=== PATIENT | female | born 1950 | race Caucasian/White ===

== ENCOUNTER → 2021-11-22 12:44 | Outpatient (CLI) | payer OTHER, SELFPAY ==
--- NOTE | 2021-11-22 12:46 | DI.US.S_ITS ---
PROCEDURE: US THYROID INDICATIONS: thyroid nodule TECHNIQUE: Real-time scanning was performed of the thyroid gland, with image documentation. COMPARISON: [facility], [place], PET NECK TO MID THIGH, 04/29/2021, 13:32. [facility], [place], US THYROID, 01/04/2008, 11:11. FINDINGS: Right: Thyroid lobe measures 5.9 x 1.9 x 1.7 cm, and is homogeneous in echotexture. Left: Thyroid lobe measures 6 x 3.1 x 2.5 cm, and is homogenous in echotexture. Isthmus: 0.5 cm thick. Nodule number: 1 Location: Right superior Size: 1.2 x 0.6 x 0.6 cm Composition: Solid Echogenicity: Hypoechoic Shape: wider than tall. Margins: Smooth Echogenic foci: None Total points: 4 ACR TI-RADS category: TR 4, moderately suspicious. Nodule number: 2 Location: Left superior Size: 3.2 x 2.4 x 1.4 cm. (previously 3.4 x 2.2 x 1.3 cm) Composition: Spongiform Echogenicity: Isoechoic Shape: wider than tall. Margins: Smooth Echogenic foci: Punctate Total points: 4 ACR TI-RADS category: TR 4, moderately suspicious Nodule number: 3 Location: Left mid posterior Size: 2.6 x 2 x 1.5 cm. (Previously 2.4 x 1.6 x 1 cm) Composition: Predominantly solid Echogenicity: Isoechoic Shape: wider than tall. Margins: Smooth Echogenic foci: Punctate Total points: 6 ACR TI-RADS category: TR 4, moderately suspicious Nodule number: 4 Location: Left inferior Size: 2.5 x 2.2 x 2.1 cm. (Previously 1 x 1 x 0.9 cm) Composition: Predominantly solid Echogenicity: Hypoechoic Shape: wider than tall. Margins: Smooth Echogenic foci: None Total points: 4 ACR TI-RADS category: TR 4, moderately suspicious IMPRESSION: 1. Left mid thyroid nodule measuring 2.6 cm is mildly increased in size. TR 4, moderately suspicious. FNA is recommended. 2. Left inferior nodule measuring 2.5 cm is increased in size. TR 4, moderately suspicious. FNA is recommended. Note: FNA is recommended for the 2 most suspicious thyroid nodules. Recommend follow-up ultrasound in 1 year for the other nodules at this time. ACR TI-RADS definitions and recommendations: TI-RADS 1 (benign): 0 points. FNA not needed. TI-RADS 2 (not suspicious): 2 points. FNA not needed. TI-RADS 3 (mildly suspicious): 3 points. * FNA if 2.5 cm or larger, follow up if 1.5 cm or larger (at 1, 3, and 5 years). TI-RADS 4 (moderately suspicious): 4-6 points. * FNA if 1.5 cm or larger, follow up if 1 cm or larger (at 1, 2, 3, and 5 years). TI-RADS 5 (highly suspicious): 7 points or more. * FNA if 1 cm or larger, follow up if 0.5 cm or larger (every year for 5 years). Dictated by: Aaron Riggs M.D. on 11/23/2021 at 12:52 Approved by: Aaron Riggs M.D. on 11/23/2021 at 13:05
--- NOTE | 2021-11-22 12:57 | DI.CT.S_ITS ---
PROCEDURE: CT CHEST WO CON INDICATIONS: stage I adenocarcinoma TECHNIQUE: Noncontrast 5 mm thick sections acquired from the pulmonary apices to the posterior costophrenic angles. 1 mm lung window, 5 mm thick coronal and sagittal and 7 mm axial MIP reformats were then acquired. For radiation dose reduction, the following was used: automated exposure control, adjustment of mA and/or kV according to patient size. COMPARISON: [facility], , US THYROID, 11/22/2021, 12:51. [facility], [place], PET NECK TO MID THIGH, 04/29/2021, 13:32. Outside Film, CT, CT LOW DOSE LUNG CA SCREENING, 03/31/2021, 13:58. [facility], [place], XR CHEST 2 VIEWS, 05/17/2021, 10:13. FINDINGS: Image quality: Excellent. Lungs and pleura: There are postsurgical changes in the right lower lobe. A airspace opacity posterior medial to the right major fissure is seen, measuring 1.7 x 2.7 x 3.3 cm. There is ground-glass infiltrate in the remnant right lower lobe. No pleural effusions or pneumothorax. Central and peripheral airways are patent and normal in caliber. Mediastinum: Heart size is normal. No pericardial effusion. No mediastinal adenopathy by size criteria. Thoracic aorta and central pulmonary arteries are normal in size. Esophagus is normal in caliber. No hiatal hernia. Bones and chest wall: No suspicious bony lesions. No vertebral body compression fractures. No axillary or supraclavicular adenopathy by size criteria. The left thyroid lobe is enlarged and contains a 2.1 x 3.0 cm low-density mass. Abdomen: Visualized upper abdominal solid organs and bowel loops appear normal in the absence of contrast. IMPRESSION: 1. Postsurgical changes in the left lower lobe. There is a 1.7 x 2.7 x 3.3 cm airspace opacity posterior medial to the right major fissure and ground-glass opacity in the remanent right lower lobe, most likely secondary to postsurgical or post radiation. Recommend close imaging follow-up. 2. Right thyroid mass. Please correlate with findings thyroid ultrasound. Dictated by: Luis Moctezuma M.D. on 11/22/2021 at 16:08 Approved by: Luis Moctezuma M.D. on 11/22/2021 at 16:19
== END ==
PROVIDERS: PCP Family Medicine; Referring Provider Internal Medicine Hematology & Oncology; Visit Provider Internal Medicine Hematology & Oncology
DX: C34.91 Malignant neoplasm of unspecified part of right bronchus or lung (principal); E04.2 Nontoxic multinodular goiter
CPT/HCPCS: 71250; 76536

== ENCOUNTER → 2022-01-02 12:05 | Outpatient (CLI) | payer OTHER, SELFPAY ==
--- NOTE | 2022-01-02 | PATH_ITS ---
Note [facility] Accession Number: [id number] TESTS RESULT FLAG UNITS REF RANGE LAB Clinician Provided Cytology Information No. of containers..00 Previously Prepared Cytology Slide 35 Unknown Storage/container code(s) Source: LEFT THYROID NODULE# DIAGNOSIS: LEFT THYROID NODULE #4 NEGATIVE FOR MALIGNANT CELLS. ADEQUATE FOR EVALUATION. ASPIRATE COMPOSED OF GROUPS OF FOLLICULAR CELLS AND COLLOID. FINDINGS FAVOR BENIGN THYROID (GOITROUS NODULE), BETHESDA CATEGORY II. SEE COMMENT. COMMENT: The specimen shows adequate cellularity with follicular epithelial cells arranged in macro and micro-follicles in a background of colloid. The follicular epithelial cells have a round to ovoid nucleus with slight enlargement and overlapping. Abundant colloid present. Focal hurthle cell changes are present. Diagnostic features of papillary thyroid carcinoma not identified. Findings favor benign thyroid (goiterous) nodule(Raymond category II). The cytologic interpretation incorporates the Raymond system for reporting thyroid cytopathology. Close clinical follow-up and repeat FNA should be considered if there is significant growth or to address new sonographic abnormalities. This case has also been reviewed by Dr. Laura Rivera, cytopathologist, who concurs with the diagnosis. Pathologist ICD10: 01 R89.6 Signed out by: Devora Jacobo MD, Pathologist NPI- [id number] Performed by: Adam Fofana, Shrink Pit Supervisor ([facility]) Gross description: 01 30 CC, PINK, CLEAR RECIEVED: IN CYTOLYT WITH 5 ALCOHOL FIXED AND 5 QUICK STAINED SLIDES ALSO 1 RNA VIAL WAS RECEIVED FOR FURTHER TESTING. /VDU 01/03/2022 0736 Local FLAG LEGEND: L-Low Normal,H-High Normal,LL-Alert Low,HH-Alert High <-Panic Low,>-Panic High,A-Abnormal,AA-Critical Abnormal Performed at: 01 =Z [facility] [address] [place] [address], [place] [address] Guilherme Nath MD, Performed at: 01 [facility] [address] [place] [address] [address], [place], [place] [id number] MD Guilherme Nath MD Phone: [phone]
--- NOTE | 2022-01-02 | PATH_ITS ---
Note [facility] Accession Number: [id number] TESTS RESULT FLAG UNITS REF RANGE LAB Clinician Provided Cytology Information No. of containers..00 Previously Prepared Cytology Slide 35 Unknown Storage/container code(s) Source: LEFT THYROID NODULE# DIAGNOSIS: LEFT THYROID NODULE #3 NEGATIVE FOR MALIGNANT CELLS. ASPIRATE COMPOSED OF GROUPS OF FOLLICULAR CELLS AND COLLOID. FINDINGS FAVOR BENIGN THYROID (GOITROUS NODULE), BETHESDA CATEGORY II. SEE COMMENT. COMMENT: The specimen shows adequate cellularity with benign follicular epithelial cells arranged in macro and micro-follicles in a background of colloid. The follicular epithelial cells have a round to ovoid nucleus with minimal cytological atypia and minimal overlapping. Features of papillary thyroid carcinoma not identified. Findings favor benign thyroid (goiterous) nodule (Edmore category II). The cytologic interpretation incorporates the Edmore system for reporting thyroid cytopathology. Close clinical follow-up and repeat FNA should be considered if there is significant growth or to address new sonographic abnormalities. Pathologist ICD10: 01 E04.1 Signed out by: Devora Jacobo MD, Pathologist NPI- [id number] Performed by: Jermaine Leonard, [employer]atory [employer] Hand ([facility]) Gross description: 01 30 CC, PINK, CLEAR RECIEVED: IN CYTOLYT WITH 5 ALCOHOL FIXED AND 5 QUICK STAINED SLIDES ALSO 1 RNA VIAL WAS RECEIVED FOR FURTHER TESTING. /JAZMIN 01/03/2022 0735 [facility] FLAG LEGEND: L-Low Normal,H-High Normal,LL-Alert Low,HH-Alert High <-Panic Low,>-Panic High,A-Abnormal,AA-Critical Abnormal Performed at: 01 =Z [facility] [address], [place] [address] Guilherme Nath MD, Performed at: 01 [facility] [address], [place], [place] [id number] MD Guilherme Nath MD Phone: [phone]
--- NOTE | 2022-01-02 12:06 | DI.US.S_ITS ---
PROCEDURE: US FINE NEEDLE ASPIRATION INDICATIONS: LEFT THYROID NODULES X 2 TECHNIQUE: The indications, alternatives, benefits, risks, and complications of the procedure were explained to the patient. Written informed consent was obtained and placed in the chart. The thyroid region was examined sonographically and a site was chosen for ultrasound guided percutaneous sampling. The skin was prepared and draped in the usual fashion, and anesthetized with 1% lidocaine infiltrated from the skin down to the thyroid gland. Multiple passes were then performed, with contents emptied into an appropriate pathology specimen container. A bandage was applied to the area of access at completion of the study. COMPARISON: [facility], [place], US THYROID, 11/22/2021, 12:51. FINDINGS: Location(s) of lesion(s) sampled: Left mid posterior thyroid (nodule #3 on the ultrasound from 11/22/2021) and left inferior thyroid (nodule #4 on the prior ultrasound). Falls Of Rough: 25 gauge hypodermic needles. Number of passes: 5 passes for each nodule Medications: 1% lidocaine for local anaesthesia. Complications: None. IMPRESSION: Successful ultrasound-guided thyroid nodule fine needle aspiration, with cytology results pending. Please see chart below for management recommendations based on cytology results. [place] [facility] ReportingRecommendationsNon-diagnostic* Repeat US-guided FNA, with on-site cytology evaluation if possible. * Repeated non-diagnostic nodules without high suspicion US features: close observation vs surgical consult. * Consider surgery if nodule has high suspicion US features, grows >20% in 2 dimensions on followup, or patient has clinical risk factors for malignancy. Benign* If nodule has high suspicion US features: repeat US and FNA within 12 months. * If nodule has low to intermediate suspicion US features: repeat US at 12-24 months. If nodule grows (20% increase in at least 2 dimensions, with minimal increase of 2 mm or >50% change in volume), or development of new suspicious US features, then repeat FNA or continue followup. * If nodule has very low suspicion US features: followup US at >24 months. Atypia of undetermined significance, follicular lesion of undetermined significanceRepeat FNA, molecular testing, followup US, or surgical consult.Follicular neoplasm, suspicious for follicular neoplasmSurgical consult; also consider molecular testing. Suspicious for malignancySurgical consult.MalignantSurgical consult. Dictated by: Ap Zhu M.D. on 01/02/2022 at 15:39 Approved by: Ap Zhu M.D. on 01/02/2022 at 15:40
--- NOTE | 2022-01-02 12:06 | DI.US.S_ITS ---
PROCEDURE: US ABDOMEN COMPLETE INDICATIONS: HEPATOMEGALY; TRANSAMINITIS TECHNIQUE: Real-time scanning was performed of the abdominal and retroperitoneal organs, with image documentation. COMPARISON: None. FINDINGS: Liver: Liver is prominent in size and homogeneous in echotexture. Gallbladder: No findings of gallstones or sludge are seen. The gallbladder wall is not thickened, measuring 3 mm or less. A 4 mm gallbladder wall polyp can be seen at the gallbladder fundus. No specific pericholecystic fluid is seen. The sonographic Higuera sign is negative. Biliary ducts: Intrahepatic bile ducts are non-dilated. Extrahepatic bile duct caliber measures 6 mm. Normal is 6-7 mm or less in diameter, or 10 mm or less post-cholecystectomy. Pancreas: Visualized portions of the pancreas are sonographically normal. Spleen: Spleen is normal in size and homogeneous in echotexture. Kidneys: Kidneys are normal in size and echotexture. Right kidney measures 9.2 cm long; left kidney measures 10 cm long. No hydronephrosis or nephrolithiasis. No solid masses. Aorta: Visualized aorta is normal in caliber at less than 3 cm. Iliacs: Proximal common iliac arteries are normal in caliber at less than 2.5 cm. IVC: Intrahepatic inferior vena cava is patent. Miscellaneous: No free abdominal fluid. IMPRESSION: Enlarged liver, without a focal liver abnormality seen. The liver demonstrates normal overall echotexture. 4 mm gallbladder wall polyp incidentally noted. Dictated by: Esteban Esteves M.D. on 01/02/2022 at 14:05 Approved by: Esteban Esteves M.D. on 01/02/2022 at 14:06
== END ==
PROVIDERS: PCP Family Medicine; Referring Provider Internal Medicine Hematology & Oncology; Visit Provider Internal Medicine Hematology & Oncology
DX: E04.2 Nontoxic multinodular goiter (principal); R16.0 Hepatomegaly, not elsewhere classified; K82.4 Cholesterolosis of gallbladder
CPT/HCPCS: 10005; 76700

== ENCOUNTER → 2022-02-15 11:56 | Outpatient (CLI) | payer OTHER, SELFPAY ==
[2022-02-15 15:01] LABS: COVID19 -Nasal RAPID Negative (Negative)
== END ==
PROVIDERS: PCP Physician Assistant; Visit Provider Surgery
DX: Z01.812 Encounter for preprocedural laboratory examination (principal); Z20.822 Contact with and (suspected) exposure to COVID-19
CPT/HCPCS: 87635; C9803

== ENCOUNTER 2022-02-16 08:04 | Day surgery (SDC) | payer OTHER, SELFPAY ==
--- NOTE | 2022-02-16 08:29 | PM.HP.1 ---
History of Present Illness History of Present Illness Date Patient Seen: 02/16/22 Time Patient Seen: 08:29 Chief complaint: SDC Narrative: Ada is a 71-year-old woman who is in for screening colonoscopy. She believes she had 1 about 7 or 8 years ago with findings of diverticulosis. She has had a recent diagnosis of lung cancer and is status post right lower lobe resection. Patient History Medical History (Updated 02/16/22 @ 08:31 by Riley Chavez MD) Arthritis Bipolar disorder HLD (hyperlipidemia) OCD (obsessive compulsive disorder) Thyroid nodule Surgical History (Updated 10/31/21 @ 23:37 by Alberto Hawk MD) H/O hemorrhoidectomy H/O: hysterectomy History of lung surgery Family & Social History Family History (Updated 10/31/21 @ 23:01 by Alberto Hawk MD) Sister Brain cancer Tobacco & Substance use: Smoking Status Former smoker alcohol intake never Meds Home Medications and Allergies Home Medications Medication Instructions Recorded Confirmed Type Lactobacillus acidophilus 10 10,000 mmu cells PO DAILY 10/31/21 01/16/22 History billion cell capsule (Probiotic) biotin 2,500 mcg tablet 2,500 mcg PO DAILY 10/31/21 01/16/22 History cholecalciferol (vitamin D3) 50 100 mcg PO DAILY 10/31/21 01/16/22 History mcg (2,000 unit) capsule (Vitamin D3) iodine (kelp) 0.15 mg tablet (Kelp) 150 mcg PO DAILY 10/31/21 01/16/22 History lysine 1,000 mg tablet 1,000 mg PO DAILY 10/31/21 01/16/22 History magnesium 250 mg tablet 500 mg PO DAILY 10/31/21 01/16/22 History omega 1-ukr-qna-fish oil 1,200 mg 2,400 cap PO DAILY 10/31/21 01/16/22 History (144 mg-216 mg) capsule (Fish Oil) vitamin B complex 1 cap PO DAILY 10/31/21 12/01/21 History diphenhydramine HCl 25 mg capsule 25 mg PO BEDTIME 01/16/22 01/16/22 History (Benadryl) valerian 400 mg capsule 400 mg PO BEDTIME PRN 01/16/22 01/16/22 History escitalopram oxalate 10 mg tablet 10 mg DAILY 02/16/22 02/16/22 History Allergies Allergy/AdvReac Type Severity Reaction Status Date / Time clindamycin Allergy Unknown Rash Verified 02/16/22 08:23 erythromycin base Allergy Unknown vomit Verified 02/16/22 08:24 Penicillins Allergy Unknown Rash Verified 02/16/22 08:24 Exam Const General: healthy appearing HENMT Head: normal to inspection Resp Effort & Inspection: normal respiratory effort GI Palpation: soft Assessment & Plan Assessment and plan (1) Colon cancer screening: Status: Acute Plan We reviewed the risks and benefits of colonoscopy for colon cancer screening. She would like to proceed. COVID-19 COVID-19 status: Negative Result date/Date tested (Pos, Neg/Pending): 02/15/22 Time Spent With Patient Critical Care time: I spent a total of [] minutes of critical care time on this patient's care today; this time is exclusive of procedural time.
[2022-02-16 08:31] VITALS: BP 158/71; PULSE 51; RESP 14; TEMP 36.4; O2SAT 98
[2022-02-16 08:32] VITALS: BMI 23.6
[2022-02-16] MEDS: LACTATED RINGERS 1,000 ML 42 ML IV (08:48)
[2022-02-16] MEDS: fentaNYL 250 MCG/5 ML INJ 175 MCG IV (09:22)
[2022-02-16] MEDS: MIDAZOLAM 5 MG/5 ML VIAL 6 MG IV (09:22)
--- NOTE | 2022-02-16 09:36 | PM.OP.COLON ---
Operative Date/Time/Diagnoses Date of procedure: 02/16/22 Time of procedure: 09:36 Pre-op diagnosis: Colon cancer screening Post-op diagnosis: same Procedure & Clinicians Study performed: Colonoscopy Same procedure as scheduled: Yes Surgeon: Riley Chavez Procedure Notes Procedure in detail: Procedure: The patient was brought to the endoscopy suite, placed in left lateral decubitus position. The patient was connected to monitoring devices. A time-out was performed. Sedation was administered. Once the patient was adequately sedated, a digital rectal exam was performed and was normal. The scope was then inserted and advanced to the cecum where the appendiceal orifice was identified and photographed. The scope was then slowly withdrawn over greater than 6 minutes. Mucosa was thoroughly inspected. No polyps were noted. Significant diverticulosis in the sigmoid colon and left colon. The scope was retroflexed in the rectum. No abnormalities were noted other than some internal hemorrhoids. Scope was straightened and removed. The patient was awakened and brought to recovery. Versed: 6 mg Fentanyl: 175 mcg EBL: 0 Findings: Sigmoid diverticulosis Scope withdrawal time: 9 Sedation minutes: 29 Findings: divertiulosis Post-procedure Recommendations: Colonoscopy in 10 years Disposition: PACU
[2022-02-16 09:39] VITALS: BP 114/58; PULSE 54; RESP 12; TEMP 36.2; O2SAT 94
[2022-02-16 09:44] VITALS: BP 111/56; PULSE 57; RESP 16; O2SAT 94
[2022-02-16 09:49] VITALS: BP 114/59; PULSE 51; RESP 13; O2SAT 95
[2022-02-16 09:54] VITALS: BP 121/56; PULSE 58; RESP 17; O2SAT 94
[2022-02-16 09:57] VITALS: BP 121/57; PULSE 53; RESP 14; TEMP 36.4; O2SAT 98
== END 2022-02-16 10:09 | disposition home or self-care (01) ==
PROVIDERS: PCP Physician Assistant; Referring Provider Surgery; Visit Provider Surgery
PROC: 0DJD8ZZ Inspection of Lower Intestinal Tract, Via Natural or Artificial Opening Endoscopic (ICD-10-PCS; CPT 45378; principal; 2022-02-16 09:15)
DX: Z12.11 Encounter for screening for malignant neoplasm of colon (principal); K57.30 Diverticulosis of large intestine without perforation or abscess without bleeding
CPT/HCPCS: G0121; 99152; 99153; J2250; J3010

== ENCOUNTER → 2022-02-27 11:58 | Outpatient (CLI) | payer OTHER, SELFPAY ==
--- NOTE | 2022-02-27 12:23 | DI.CT.S_ITS ---
PROCEDURE: CT CHEST WO CON INDICATIONS: lung cancer TECHNIQUE: Noncontrast 2.0-2.5 mm thick sections acquired from the pulmonary apices to the posterior costophrenic angles. 7 mm thick axial MIP and 5 mm coronal and sagittal reformats were then acquired. A low radiation dose technique was utilized. COMPARISON: Outside Film, CT, CT LOW DOSE LUNG CA SCREENING, 03/31/2021, 13:58. [facility], CT, CT CHEST WO CON, 11/22/2021, 13:03. FINDINGS: Image quality: Diagnostic, given the low radiation dose technique. Lungs and pleura: Opacity at the medial right lower lobe measuring 2.5 x 1.6 cm, (), previously remeasured 3.2 x 1.7 cm on 11/22/2021. There is associated suture material. Mild ground-glass opacity in the right lower lobe is similar. Volume loss in the right lower lobe. A few foci of nodular opacity in the left upper lobe are unchanged. No new airspace opacity. Central airways are clear. Trace right pleural fluid. No pneumothorax. Mediastinum: Heart size is prominent. Mild coronary artery calcifications. No pericardial effusion. No mediastinal adenopathy by size criteria. Thoracic aorta and central pulmonary arteries are normal in size. Esophagus is normal in caliber. No hiatal hernia. Bones and chest wall: No suspicious bony lesions. No vertebral body compression fractures. No axillary or supraclavicular adenopathy by size criteria. Multiple thyroid nodules are grossly stable. Abdomen: Visualized upper abdomen solid organs and bowel loops appear normal in the absence of contrast. IMPRESSION: 1. Right lower lobe medial opacity associated with the prior surgical site measuring 2.5 cm is slightly decreased in size. No enlarging mass to suggest local recurrence. 2. Similar ground-glass opacity and volume loss in the right lower lobe. 3. No adenopathy seen. Fleischner Society criteria for SOLID lung nodule followup. Nodule size (mm)Low-risk patientHigh-risk patient<6 (single or multiple)No routine followup.Optional CT at 12 months. 6-8 (single or multiple)CT at 6-12 months, then optional CT at 18-24 mo.CT at 6-12 months, then CT at 18-24 months. >8 (single)CT at 3 months, PET-CT, or biopsy. Same as for low-risk pts. >8 (multiple)CT at 3-6 months, then optional CT at 18-24 mo.CT at 3-6 months, then CT at 18-24 months. Fleischner Society criteria for SUB-SOLID lung nodule followup. Solitary pure ground-glass nodules<6 mm (ground glass or part solid)No followup needed. 6 mm or larger (ground glass)CT at 6-12 months to confirm persistence, then CT every 2 years until 5 years.6 mm or larger (part solid)CT at 3-6 months to confirm persistence, then annual CT until 5 years if unchanged and solid component remains <6 mm. Multiple sub-solid nodules<6 mmCT at 3-6 months, then CT consider at 2 & 4 years for high risk patients. [address] at 3-6 months. Subsequent management based on most suspicious lesions. Recommendations do not apply to lung cancer screening, patients with immunosuppression, or patients with known primary cancer. Dictated by: Aaron Riggs M.D. on 02/27/2022 at 13:28 Approved by: Aaron Riggs M.D. on 02/27/2022 at 13:41
== END ==
PROVIDERS: PCP Physician Assistant; Referring Provider Internal Medicine Hematology & Oncology; Visit Provider Internal Medicine Hematology & Oncology
DX: C34.31 Malignant neoplasm of lower lobe, right bronchus or lung (principal); I25.10 Atherosclerotic heart disease of native coronary artery without angina pectoris; E04.2 Nontoxic multinodular goiter
CPT/HCPCS: 71250

== ENCOUNTER → 2022-05-31 11:25 | Outpatient (CLI) | payer OTHER, SELFPAY ==
--- NOTE | 2022-05-31 11:28 | DI.CT.S_ITS ---
PROCEDURE: CT CHEST WO CON INDICATIONS: History of lung cancer TECHNIQUE: Noncontrast 5 mm thick sections acquired from the pulmonary apices to the posterior costophrenic angles. 1 mm lung window, 5 mm thick coronal and sagittal and 7 mm axial MIP reformats were then acquired. For radiation dose reduction, the following was used: automated exposure control, adjustment of mA and/or kV according to patient size. COMPARISON: [facility], CT, CT CHEST WO CON, 02/27/2022, 12:07. FINDINGS: Image quality: Excellent. Lungs and pleura: Previously demonstrated irregular opacity at the medial right lower lobe now measures 2.8 x 1.5 cm (), previously 2.8 x 1.5 cm when remeasured, not significantly changed. As before this finding is adjacent to a surgical staple line. Trace right pleural effusion as before. Similar right lower lobe ground-glass opacity. No definite new suspicious findings. Mediastinum: No pericardial effusion. No definite mediastinal adenopathy by size criteria, evaluation is limited on this non-contrast exam. Thoracic aorta and central pulmonary arteries are normal in size. Esophagus is normal in caliber. No hiatal hernia. Bones and chest wall: No suspicious bony lesions. No vertebral body compression fractures. No axillary or supraclavicular adenopathy by size criteria. Multiple thyroid nodules are present as before, not well evaluated by CT. Abdomen: Visualized upper abdominal solid organs and bowel loops appear normal in the absence of contrast. IMPRESSION: 1. Similar appearance of irregular opacity at the right lower lobe adjacent to a prior resection site. 2. No definite new suspicious findings. Dictated by: Ap Mcnally M.D. on 05/31/2022 at 16:18 Approved by: Ap Mcnally M.D. on 05/31/2022 at 16:36
== END ==
PROVIDERS: PCP Physician Assistant; Referring Provider Internal Medicine Hematology & Oncology; Visit Provider Internal Medicine Hematology & Oncology
DX: C34.31 Malignant neoplasm of lower lobe, right bronchus or lung (principal)
CPT/HCPCS: 71250

== ENCOUNTER → 2022-06-05 14:23 | Outpatient (CLI) | payer OTHER, SELFPAY ==
[2022-06-05 15:41] LABS: COVID19 -Nasal RAPID Negative (Negative)
--- NOTE | 2022-06-05 19:41 | DI.NM.S_ITS ---
DATE OF SERVICE: 06/05/2022 PROCEDURE: Exercise stress test. INDICATION: Chest pain, shortness of breath. Anxiety. CARDIAC STRESS: The patient underwent exercise stress test under the supervision of an attending staff. She walked on Johnnie protocol for 7 minutes and 03 seconds, achieved 88 percent of target heart rate. Baseline blood pressure 140/74 mmHg. Peak blood pressure 200/100 mmHg, suggestive of hypertensive blood pressure response. The patient achieved 10.1 METs of workload. GEOVANNA -22 percent. Baseline rhythm was sinus. During rest, the patient started having frequent PVCs in the form of ventricular bigeminy. During early stages of exercise, the patient continued to have frequent PVCs, including bigeminy and rare ventricular triplets, which were polymorphic, however at the mid and peak level of exercise, no significant PVCs seen. At peak exercise, there were occasional isolated PVCs. In recovery, PVCs were not seen. No significant ischemic changes seen. In recovery, the patient had sharp chest discomfort, which was on a scale of 1 to 10, 5 in intensity, which got resolved later on. Had some shortness of breath. CONCLUSION: Exercise stress test did not reveal any obvious significant inducible ischemic changes. At rest, frequent PVCs including ventricular bigeminies, which, in fact, did not get worse during mid and peak exercise. In recovery, no premature ventricular contractions were seen. Rare ventricular triplets at rest and in early part of exercise. No sustained ventricular tachycardia. Good exercise tolerance. Hypertensive blood pressure response. Baseline blood pressure 140/74 mmHg and peak blood pressure 200/100 mmHg. Sharp chest pain in recovery, which got resolved later on. Consider repeating exercise stress test with perfusion study or exercise stress echo for further coronary artery risk stratification in view of premature ventricular contractions and rare ventricular triplet. MarcianoEmoryLcaie - VANDANA/melissa/rodney doc#: [id number]/job#: [id number] dd: 06/05/2022 17:11:00 dt: 06/05/2022 19:12:00 DICTATING MD/COPIES TO: Beverly Paige MD COPIES MNE: JOSE;
== END ==
PROVIDERS: PCP Physician Assistant; Referring Provider Physician Assistant; Visit Provider Physician Assistant
DX: R07.9 Chest pain, unspecified; R06.02 Shortness of breath; F41.9 Anxiety disorder, unspecified; Z20.822 Contact with and (suspected) exposure to COVID-19
CPT/HCPCS: 87635; 93017

== ENCOUNTER → 2022-07-19 13:38 | Outpatient (CLI) | payer OTHER, SELFPAY ==
--- NOTE | 2022-07-19 | DI.MG.S_ITS ---
BILATERAL DIGITAL DIAGNOSTIC MAMMOGRAM 3D/2D SHORT-TERM FOLLOW-UP: 07/19/2022 CLINICAL: Short term follow up of the left breast, due for bilateral imaging. Comparison is made to exams dated: 09/22/2021 mammogram, 03/31/2021 mammogram, and 09/22/2021 ultrasound - [facility]. There are scattered areas of fibroglandular density in both breasts (category b / 25%-50% glandular tissue). There is a focal asymmetry in the left breast at 12 o'clock middle depth. This is less prominent. No other significant masses, calcifications, or other findings are seen in either breast. IMPRESSION: INCOMPLETE: NEEDS ADDITIONAL IMAGING EVALUATION The focal asymmetry in the left breast is indeterminate. A targeted ultrasound is recommended and will immediately follow. Based on the Tyrer Cuzick model (a risk assessment model) the patient's lifetime risk is 3.5% and her 10 year risk is 2.4%. According to the ACR, ACS, and NCCN guidelines, an annual breast MRI exam along with mammogram is recommended if the patient's lifetime risk is 20% or greater. This exam was interpreted at Station ID: [id number]. NOTE: For mammograms, a report in lay terms will be sent to the patient. Approximately 15% of breast malignancies will not be visualized mammographically. In the management of a palpable breast mass, a negative mammogram must not discourage biopsy of a clinically suspicious lesion. Electronically Signed By: Aaron Riggs M.D. slc/:07/19/2022 14:14:52 ACR BI-RADS Category 0: Incomplete 3340F
--- NOTE | 2022-07-19 | DI.US.S_ITS ---
LIMITED ULTRASOUND OF LEFT BREAST: 07/19/2022 CLINICAL: Patient returns today to evaluate a focal asymmetry in the left breast. Comparison is made to exams dated: 07/19/2022 mammogram - [facility], 09/22/2021 mammogram, 09/22/2021 ultrasound, and 03/31/2021 mammogram - [facility]. Color flow and real-time ultrasound of the left breast 1 o'clock region were performed. Delong scale images of the real-time examination were reviewed. The lymph node in the left breast at 1 o'clock middle depth is no longer seen. IMPRESSION: BENIGN There is no sonographic evidence of malignancy. Left breast intramammary lymph node is no longer seen. A 1 year screening mammogram is recommended. Exam findings were conveyed to the patient. This exam was interpreted at Station ID: [id number]. Electronically Signed By: Aaron Riggs M.D. slc/:07/19/2022 14:50:43 letter sent: Normal Exam Ultrasound BI-RADS: 2 Benign
== END ==
PROVIDERS: PCP Physician Assistant; Referring Provider Physician Assistant; Visit Provider Physician Assistant
DX: R92.8 Other abnormal and inconclusive findings on diagnostic imaging of breast (principal); N64.89 Other specified disorders of breast
CPT/HCPCS: 76642; 77066; G0279

== ENCOUNTER → 2022-12-12 11:46 | Outpatient (CLI) | payer OTHER, SELFPAY ==
--- NOTE | 2022-12-12 11:47 | DI.CT.S_ITS ---
PROCEDURE: CT CHEST WO CON INDICATIONS: lung cancer TECHNIQUE: Noncontrast 5 mm thick sections acquired from the pulmonary apices to the posterior costophrenic angles. 1 mm lung window, 5 mm thick coronal and sagittal and 7 mm axial MIP reformats were then acquired. For radiation dose reduction, the following was used: automated exposure control, adjustment of mA and/or kV according to patient size. COMPARISON: [facility], CT, CT CHEST WO CON, 11/22/2021, 13:03. [facility], CT, CT CHEST WO CON, 05/31/2022, 11:32. FINDINGS: Image quality: Excellent. Lungs and pleura: Postoperative changes and probable radiation change is redemonstrated within the superior segment of the right lower lobe. These findings are unchanged when compared with the study dated November 22, 2021. Mediastinum: Heart size is normal. No pericardial effusion. No mediastinal adenopathy by size criteria. Thoracic aorta and central pulmonary arteries are normal in size. Esophagus is normal in caliber. No hiatal hernia. Bones and chest wall: No suspicious bony lesions. No vertebral body compression fractures. No axillary or supraclavicular adenopathy by size criteria. Thyroid gland has a heterogeneous, enlarged appearance as before. . Abdomen: Visualized upper abdominal solid organs and bowel loops appear normal in the absence of contrast. IMPRESSION: 1. Stable postoperative change in the right lung. No new suspicious pulmonary nodules or mass lesions. 2. Enlarged, nodular appearance of the thyroid which is incompletely characterized. If further characterization is warranted, thyroid ultrasound is recommended. Dictated by: Michelle Mario M.D. on 12/12/2022 at 14:37 Approved by: Michelle Mario M.D. on 12/12/2022 at 14:41
== END ==
PROVIDERS: PCP Physician Assistant; Referring Provider Internal Medicine Hematology & Oncology; Visit Provider Internal Medicine Hematology & Oncology
DX: C34.31 Malignant neoplasm of lower lobe, right bronchus or lung (principal); E04.9 Nontoxic goiter, unspecified
CPT/HCPCS: 71250

== ENCOUNTER → 2023-01-25 14:38 | Outpatient (CLI) | payer OTHER, SELFPAY ==
--- NOTE | 2023-01-25 | DI.ECHO.S_ITS ---
[facility]---------+ [facility] +---------+ : : [address] : [address] : : : : [id number] : : : : Phone: [phone]+ Echocardiogram Report + + :Name: BEBETO GARCIA Study Date: 01/25/2023 Height: 63 in : :[facility] ReadingLocation: Weight: 148 lb : :Account #: [id number] Gender: Female BSA: 1.7 m2 : :: 1950 Age: 72 yrs BP: 153/73 mmHg: :Reason For Study: VENTRICULAR PREMATURE DEPOLARIZATION : :Ordering Physician: BRIAN, : :MEDINA Performed By: Thelma Silva : :Referring: MEDINA BOLTON : + + Interpretation Summary 1) Normal left ventricular thickness, size, wall motion, and systolic function (EF 55-60%). 2) Normal right ventricular size and function. 3) There is mild aortic regurgitation. 4) There is mild to moderate mitral regurgitation. 5) No prior Echo available for comparison. Procedure: A two-dimensional transthoracic echocardiogram with color flow and Doppler was performed. The study quality was technically adequate. There is no prior echocardiogram noted for this patient. The patient was in sinus rhythm with heart rates between 51-86 bpm during the exam. Left Ventricle: The left ventricle is normal in size and wall thickness. The ejection fraction is estimated to be 55-60%. There are no obvious focal wall motion abnormalities noted but poor endocardial definition reduces the sensitivity for the detection of such. Right Ventricle: The right ventricle is normal in size and function. Atria: The left atrial size is normal. Right atrial size is normal. There is no Doppler evidence for an interatrial shunt. Mitral Valve: The mitral valve leaflets appear borderline thickened, but open well. There is mild to moderate mitral regurgitation. Aortic Valve: The aortic valve is trileaflet. The aortic valve opens well. There is no aortic valve stenosis. There is mild aortic regurgitation. Tricuspid Valve: The tricuspid valve is normal in structure and function. There is mild tricuspid regurgitation. The right ventricular systolic pressure is estimated to be at least 21 mmHg based on an estimated right atrial pressure of 3 mm Hg. Pulmonic Valve: The pulmonic valve is not well visualized. There is no pulmonic valvular regurgitation. Great Vessels: The aortic root is normal size. The dimensions of the ascending aorta are normal. The IVC is of normal diameter and collapses greater than 50% with a sniff. This suggests a low right atrial pressure of 3 mm Hg. Pericardium/ Pleura There is no pericardial effusion. There is no pleural effusion. MMode/2D Measurements & Calculations LVIDd: 5.1 cm LVOT diam: 2.0 cm LVIDs: 3.4 cm Ao root diam: 3.2 cm FS: 33.5 % asc Aorta Diam: 3.6 cm EPSS: 0.75 cm Ao Arch Diam (Prox Trans): 2.9 cm IVSd: 0.69 cm LVPWd: 0.76 cm LV oliver. diameter/BSA (cm/m^2): 3.0 LV sys. diameter/BSA (cm/m^2): 2.0 LA A2 area: 17.5 cm2 RA long axis: 4.4 cm LA A4 area: 17.2 cm2 RA area: 14.9 cm2 LA length (vol): 5.2 cm RA vol: 43.4 ml LA vol: 49.0 ml RA : 25.5 ml/m2 LA vol index: 28.8 ml/m2 IVC diam: 0.72 cm RVD1 (basal): 2.9 cm RVD2 (mid): 2.2 cm TAPSE: 2.0 cm Doppler Measurements & Calculations Ao V2 max: 117.3 cm/sec LVOT Max Warner: 81.6 cm/sec Ao V2 mean: 81.2 cm/sec LV V1 max P.7 mmHg Ao max P.5 mmHg LV V1 VTI: 19.9 cm Ao mean P.9 mmHg SONIA(I,D): 2.5 cm2 Ao V2 VTI: 26.3 cm SONIA(V,D): 2.3 cm2 sev ratio: 0.76 SONIA indexed to BSA (cm^2/m^2): 1.5 MV E max warner: 44.0 cm/sec TR max warner: 217.0 cm/sec MV A max warner: 82.0 cm/sec TR max P.8 mmHg MV E/A: 0.54 PA pr(Accel): 27.6 mmHg Med Peak E' Warner: 6.6 cm/sec E/E' med: 6.6 Lat Peak E' Warner: 7.7 cm/sec E/E' lat: 5.7 E/e' average: 6.2 MV dec time: 0.53 sec SV(LVOT): 65.7 ml Reading Physician:04:30 PM
== END ==
PROVIDERS: PCP Physician Assistant; Referring Provider Internal Medicine Cardiovascular Disease; Visit Provider Internal Medicine Cardiovascular Disease
DX: I49.3 Ventricular premature depolarization (principal); I08.3 Combined rheumatic disorders of mitral, aortic and tricuspid valves
CPT/HCPCS: 93306

== ENCOUNTER → 2023-06-27 12:40 | Outpatient (CLI) | payer OTHER, SELFPAY ==
--- NOTE | 2023-06-27 12:42 | DI.CT.S_ITS ---
PROCEDURE: CT CHEST WO CON INDICATIONS: lung cancer TECHNIQUE: Noncontrast 5 mm thick sections acquired from the pulmonary apices to the posterior costophrenic angles. 1 mm lung window, 5 mm thick coronal and sagittal and 7 mm axial MIP reformats were then acquired. For radiation dose reduction, the following was used: automated exposure control, adjustment of mA and/or kV according to patient size. COMPARISON: [facility], CT, CT CHEST WO CON, 05/31/2022, 11:32. [facility], CT, CT CHEST WO CON, 12/12/2022, 11:58. FINDINGS: Lungs and pleura: Similar appearance of previously demonstrated irregular opacity at the medial right lower lobe adjacent to a surgical staple line. Trace right pleural effusion as before. Similar right lower lobe ground-glass opacity. Mediastinum: No pericardial effusion. Thoracic aorta and central pulmonary arteries are normal in size. Esophagus is normal in caliber. Bones and chest wall: Multilevel degenerative change of the visualized spine. No axillary or supraclavicular adenopathy by size criteria. Abdomen: Visualized upper abdominal solid organs and bowel loops appear normal in the absence of contrast. IMPRESSION: Similar post treatment changes medial right lower lobe. Dictated by: Ap Mcnally M.D. on 06/28/2023 at 9:32 Approved by: Ap Mcnally M.D. on 06/28/2023 at 10:55
== END ==
PROVIDERS: PCP Physician Assistant; Referring Provider Internal Medicine Hematology & Oncology; Visit Provider Internal Medicine Hematology & Oncology
DX: C34.31 Malignant neoplasm of lower lobe, right bronchus or lung (principal)
CPT/HCPCS: 71250